=== PATIENT | female | born 1955 | race Caucasian/White ===

== ENCOUNTER 2019-07-23 13:46 | Observation (INO) | payer OTHER, SELFPAY ==
[2019-07-23 13:47] VITALS: BP 136/83; PULSE 66; RESP 12; TEMP 36.6; O2SAT 99; BMI 27.1
--- NOTE | 2019-07-23 15:48 | ED.DCSUM_ITS ---
History of Present Illness Informant: Patient, Significant Other Onset: Today Context: Sudden Onset Timing: Continuous, Waxes and wanes Quality: Pain Location: Right upper quadrant and epigastrium Current Severity: Mild Maximum Severity: Severe Worsened by: After eating lunch Relieved by: Nothing Associated Symptoms: Nausea Narrative: Medication who presents with acute onset of right upper quadrant epigastric pain without radiation that was associate with nausea that occurred 15 minutes after having fish and vegetables. She states she had no butter on her vegetables. She does have history of intolerance to greasy and fried foods. She is never had an ultrasound of her gallbladder or right upper quadrant. She is unaware of any family history cholelithiasis. There is no history of renal or ureteral calculi. She denies history of esophagitis, hiatal hernia, reflux or peptic ulcer disease. She denies black or maroon-colored stool. No cardiac or respiratory symptoms. Prior similar symptoms: No Recent Illness/Hospitalization: No <Hernandez,Mike - Last Filed: 07/23/19 17:10> <Lopez Nieves - Last Filed: 07/23/19 23:22> Chief Complaint: Abd Pain - Past Medical History (1) No significant past medical history Status: Acute <Hernandez,Mike - Last Filed: 07/23/19 17:10> Past Medical History Past Medical History: None Surgical History: no surgical history Lives: Spouse/ Significant Other Smoking Status: Never smoker Alcohol: None Drugs: None <Hernandez,Mike - Last Filed: 07/23/19 17:10> <Lopez Nieves - Last Filed: 07/23/19 23:22> - Allergies and Home Meds Allergies/Adverse Reactions: Allergies No Known Allergies Allergy (Verified 07/23/19 13:46) Primary Care Physician: Aba Crowder DO [Primary Care Provider] - Review of Systems General: Denies: Chills, Fever, Sweats Eyes: Denies: Visual changes - bilaterally, Diplopia ENT: Denies: Rhinorrhea, Sore throat Cardiovascular: Denies: Chest pain, Palpitations, Heart racing Respiratory: Denies: Dyspnea, Cough, Dyspnea on exertion, Orthopnea, Paroxysmal nocturnal dyspnea Gastrointestinal: Reports: Abdominal pain, Nausea. Denies: Vomiting, Diarrhea, Constipation, Melena, Hematochezia, -, - Genitourinary: Denies: Dysuria, Hematuria, Frequency Musculoskeletal: Denies: Myalgias, Arthralgias, Neck pain, Back pain, Swelling, Extremity Pain Skin: Denies: Rash, Wounds Neurological: Denies: Headache, Weakness, Numbness Hematologic: Denies: Easy bruising, Easy bleeding Allergy: Denies: Uticaria, Swelling of the mouth <Hernandez,Mike - Last Filed: 07/23/19 17:10> Physical Exam Vital Signs/Narrative: Vital Signs Temp Pulse Resp BP Pulse Ox 07/23/19 13:47 97.9 F 66 12 136/83 H 99 Inital Vital Signs reviewed: Yes General: Well nourished, Well developed, No Acute Distress Head: Normocephalic, Atraumatic Eyes: Perrl, EOMI. Negative for: Pale conjunctiva, Scleral icterus ENT: Moist mucous membranes, No rhinorrhea Neck: Supple, Nontender, No lymphadenopathy, No JVD Cardiovascular: Regular rate, Regular rhythm, No murmurs, Normal S1, Normal S2 Respiratory: No distress, CTA bilaterally, Chest nontender Abdomen: Soft, Nondistended, No masses, - - Stephen the right upper quadrant and epigastrium. She has an equivocal Silvestre sign.. Negative for: Nontender, Normal bowel sounds, Tender, Guarding, Ventral hernia, Inguinal hernia, Umbilical hernia Rectal: Deferred Back: Nontender, Normal Inspection Extremities: Nontender, No edema Skin: Normal color, No rash Neurological: Alert, Oriented x3, Cranial nerves II-XII grossly intact, Normal Strength, Normal Sensation Psychological: Normal affect, Normal Mood <Hernandez,Mike - Last Filed: 07/23/19 17:10> Vital Signs/Narrative: Vital Signs Pulse Resp BP Pulse Ox 07/23/19 22:17 61 13 138/74 H 97 07/23/19 20:20 66 12 98 <Lopez Nieves - Last Filed: 07/23/19 23:22> Diagnostic/Tx/Re-eval Laboratory Results 07/23/19 07/23/19 16:15 16:15 WBC 8.6 RBC 3.99 L Hgb 13.4 Hct 39.6 MCV 99.2 H MCH 33.6 H MCHC 33.8 RDW Std Deviation 43.9 RDW Coeff of Holly 12.1 Plt Count 166 MPV 11.4 Immature Gran % (Auto) 0.300 Neut % (Auto) 77.3 H Lymph % (Auto) 15.3 L [place] % (Auto) 6.3 Eos % (Auto) 0.7 Baso % (Auto) 0.1 Absolute Neuts (auto) 6.7 Absolute Lymphs (auto) 1.32 Nucleated RBC % 0 Sodium 140 Potassium 4.1 Chloride 105 Carbon Dioxide 32.0 Anion Gap 3 L BUN 17 Creatinine 0.72 Estim Creat Clear Calc 62.43 Est GFR (MDRD) Af Amer 105 Est GFR (MDRD) Non-Af 87 BUN/Creatinine Ratio 23.7 H Glucose 93 Calcium 9.0 Total Bilirubin 0.30 AST 82 H ALT 67 H Alkaline Phosphatase 64 Total Protein 7.4 Albumin 3.6 Globulin 3.8 Albumin/Globulin Ratio 0.9 Lipase 2497 H Blood work is remarkable for a lipase of 2497. With history of intolerance to greasy fried foods this occurred after having fish and vegetables need to evaluate for cholelithiasis. Patient was told to optimize the results of the ultrasound she should wait 8:00. She preferred not to be admitted. She would prefer to know with the ultrasound results reveal and make a decision based on the ultrasound results. Case will be turned over to Dr. Kwadwo Nieves. - Medical Decision Making Prior history of intolerance to greasy and fried foods and pain in the right upper quadrant with equivocal Silvestre sign will evaluate for biliary disease. Since patient ate 2 hours prior to arrival will not be able to obtain an ultrasound until 8 PM. Patient declined pain medicine. Differential diagnosis would include right lower lobe pneumonia, biliary colic, cholelithiasis, cholecystitis. Doubt obstructing ureteral stone since patient reports improvement and there is pain in the right upper quadrant not the flank and she has no urinary symptoms. <Hernandez,Mike - Last Filed: 07/23/19 17:10> Clinical Impression(s) from Imaging Studies Gallbladder Ultrasound 07/23/19 20:00 IMPRESSION: Multiple gallstones. Gallbladder wall thickening. No biliary dilatation. Electronically Signed: Lopez Chapa MD at 22:04 EST , Service support , - Medical Decision Making I evaluated patient after her ultrasound results came back. She is doing well. I examined her. She has significant right upper quadrant tenderness, she had a positive clinical and positive sonographic Silvestre's. She does not have any radiographic evidence of choledocholithiasis, but with her lipase over 2000, she either has a stone or could have had one that passed since her common bile duct is not dilated on the ultrasound. She does not have cholestasis. She is clinically and hemodynamically stable. I advised admission and the patient is amenable to that after discussing with me and her family. Discussed with surgery Dr. Alvarez who agrees with admission and per her request, Zosyn ordered. <Lopez Nieves - Last Filed: 07/23/19 23:22> ED Disposition <Hernandez,Mike - Last Filed: 07/23/19 17:10> <Lopez Nivees - Last Filed: 07/23/19 23:22> - Plan for ED Patient: Disposition: Acute Care Hospital [facility] Diagnosis: Acute calculous cholecystitis Referrals: Aba Crowder DO [Primary Care Provider] -
[2019-07-23 16:18] VITALS: BP 135/69; PULSE 70; RESP 16; O2SAT 98
[2019-07-23 16:29] LABS: Absolute Lymphocyte Count 1.32 X10^3/uL (0.83-4.51); Absolute Neutrophil Count 6.7 X10^3/uL (2.0-7.7); Basophil# 0.01 X10^3/uL; Basophil% 0.1 % (0-1); Eosinophil# 0.06 X10^3/uL; Eosinophils% 0.7 % (0-5); Hematocrit 39.6 % (37-47); Hemoglobin 13.4 g/dL (12.0-15.0); Lymphocyte # 1.32 X10^3/ul (4.0); Lymphocyte % 15.3 % (19-41); Mean Corp Hgb Conc 33.8 g/dL (32-36); Mean Corpuscular Hgb 33.6 pg (27.0-32.0); Mean Corpuscular Volume 99.2 fL (81-99); Mean Platelet Vol. 11.4 fl (6.2-12.0); Monocyte# 0.54 X10^3/uL; Monocyte% 6.3 % (0-10); NRBC Flagged by Analyzer 0 % (0-5); Neutrophil # 6.67 X10^3/uL (2.7-7.7); Neutrophil % 77.3 % (47-70); Platelet Count 166 K/mm3 (150-450); RBC Distribution Width CV 12.1 % (11.6-14.6); RBC Distribution Width SD 43.9 fl (35.1-43.9); Red Blood Count 3.99 M/mm3 (4.2-5.4); White Blood Count 8.6 K/mm3 (4.4-11.0)
[2019-07-23 16:49] LABS: ALB/GLOB Ratio 0.9 RATIO (0.9-2.4); AST(SGOT) 82 U/L (15-37); Alanine Aminotransfer ALT/SGPT 67 U/L (13-56); Albumin, Serum 3.6 g/dL (3.2-5.0); Alkaline Phosphatase 64 U/L (45-117); Anion Gap 3 (5-15); BUN 17 mg/dL (7-18); BUN/Creat Ratio 23.7 RATIO (10-20); Chloride 105 mmol/L (98-107); Creatinine, Serum 0.72 mg/dL (0.55-1.02); EST Glomerular Filtration Rate 87 mL/min (>60); Est Glom Filt Rate - Afr Amer 105 mL/min (>60); Estimated Creatinine Clearance 62.43 ml/min; Globulin 3.8 g/dL (2.2-4.2); Glucose 93 mg/dL (74-106); Lipase 2497 U/L (73-393); Potassium 4.1 mmol/L (3.5-5.1); Protein, Total 7.4 g/dL (6.4-8.2); Sodium Level 140 mmol/L (136-145)
[2019-07-23 18:12] VITALS: BP 144/73; PULSE 67; RESP 18; O2SAT 97
--- NOTE | 2019-07-23 20:00 | US_ITS ---
STUDY: ABDOMINAL ULTRASOUND - RIGHT UPPER QUADRANT REASON FOR VISIT: Female, 64 years old RUQ PAIN TODAY DIARRHEA, TECHNIQUE: Ultrasound evaluation of the right upper quadrant was performed with real-time and static dowell-scale imaging. TECHNICAL QUALITY: Adequate. COMPARISON: None. FINDINGS: Liver: The liver measures 16.3 cm. There is normal echogenicity of the liver. The bile ducts are within normal limits. There is hepatic color flow. The direction of portal flow is hepatopetal. There is no demonstrated mass lesion. Gallbladder: Normal distended gallbladder. The gallbladder wall measures 3 mm. There is a positive sonographic Silvestre''s sign. There is no pericholecystic fluid. There are multiple echogenic structures within the gallbladder, consistent with multiple gallstones. Common Bile Duct (C.B.D.): The common bile duct measures 3 mm. Pancreas: Normal size of the head, body and tail of the pancreas. There is normal echogenicity of the pancreas. There is no demonstrated pancreatic mass or cyst. Right Kidney: Normal size of the right kidney. The right kidney measures 12.1 cm. Normal renal cortex. The right cortex measures 1.0 cm. There is no demonstrated renal mass or cyst. There is an extra-renal pelvis of the right kidney. There is no distention of the renal calyces. US/Gallbladder IMPRESSION: Multiple gallstones. Gallbladder wall thickening. No biliary dilatation. Electronically Signed: Lopez Chapa MD at 22:04 EST , Service support ,
[2019-07-23 20:20] VITALS: PULSE 66; RESP 12; O2SAT 98
[2019-07-23 22:17] VITALS: BP 138/74; PULSE 61; RESP 13; O2SAT 97
--- NOTE | 2019-07-23 23:26 | EKG12_ITS ---
Test Reason : PRE OP Blood Pressure : / mmHG Vent. Rate : 059 BPM Atrial Rate : 059 BPM P-R Int : 162 ms QRS Dur : 096 ms QT Int : 426 ms P-R-T Axes : 051 047 046 degrees QTc Int : 421 ms Sinus bradycardia Otherwise normal ECG When compared with ECG of 07-SEP-1998 19:45, Vent. rate has decreased BY 29 BPM Confirmed by TALI GLOVER, NATALIA ([id number]), business editor DENISE RODRIGUEZ ([id number]) on 07/27/2019 2:56:35 PM Referred By: Confirmed By:DAMON CESAR MD
[2019-07-23 23:46] VITALS: BP 141/80
[2019-07-24] VITALS (11 sets, daily range): BP systolic 116–156; BP diastolic 68–85; PULSE 45–73; RESP 16–18; TEMP 36.3–37.2; O2SAT 94–100; BMI 25.8
[2019-07-24] MEDS: 0.9% Normal Saline 1,000 ML 120 ML IV ×3 (00:41→17:51)
[2019-07-24 06:10] LABS: Absolute Lymphocyte Count 1.45 X10^3/uL (0.83-4.51); Absolute Neutrophil Count 1.7 X10^3/uL (2.0-7.7); Basophil# 0.01 X10^3/uL; Basophil% 0.3 % (0-1); Eosinophil# 0.08 X10^3/uL; Eosinophils% 2.3 % (0-5); Hematocrit 36.7 % (37-47); Hemoglobin 12.3 g/dL (12.0-15.0); Lymphocyte # 1.45 X10^3/ul (4.0); Lymphocyte % 41.2 % (19-41); Mean Corp Hgb Conc 33.5 g/dL (32-36); Mean Corpuscular Hgb 32.9 pg (27.0-32.0); Mean Corpuscular Volume 98.1 fL (81-99); Mean Platelet Vol. 11.3 fl (6.2-12.0); Monocyte# 0.29 X10^3/uL; Monocyte% 8.2 % (0-10); NRBC Flagged by Analyzer 0 % (0-5); Neutrophil # 1.69 X10^3/uL (2.7-7.7); Platelet Count 151 K/mm3 (150-450); RBC Distribution Width CV 12.3 % (11.6-14.6); RBC Distribution Width SD 44.1 fl (35.1-43.9); Red Blood Count 3.74 M/mm3 (4.2-5.4); White Blood Count 3.5 K/mm3 (4.4-11.0)
[2019-07-24 06:34] LABS: AST(SGOT) 31 U/L (15-37); Alanine Aminotransfer ALT/SGPT 46 U/L (13-56); Albumin, Serum 2.9 g/dL (3.2-5.0); Alkaline Phosphatase 49 U/L (45-117); Anion Gap 4 (5-15); BUN 12 mg/dL (7-18); BUN/Creat Ratio 19.1 RATIO (10-20); Bilirubin, Direct 0.21 mg/dL (0.00-0.30); Calcium,Total 8.2 mg/dL (8.5-10.1); Chloride 111 mmol/L (98-107); Creatinine, Serum 0.63 mg/dL (0.55-1.02); EST Glomerular Filtration Rate 101 mL/min (>60); Est Glom Filt Rate - Afr Amer 123 mL/min (>60); Estimated Creatinine Clearance 71.35 ml/min; Globulin 3.3 g/dL (2.2-4.2); Glucose 89 mg/dL (74-106); Lipase 129 U/L (73-393); Potassium 3.8 mmol/L (3.5-5.1); Protein, Total 6.2 g/dL (6.4-8.2); Sodium Level 143 mmol/L (136-145)
--- NOTE | 2019-07-24 07:03 | RAD_ITS ---
STUDY: INTRAOPERATIVE CHOLANGIOGRAM. REASON FOR EXAM: Female, 64 years old. LAP TRINA -- ACUTE CHOLECYSTITIS, PANCREATITIS FLUOROSCOPY TIME (if supplied): ( 37 seconds ) minutes/seconds. 2 single loops were acquired. TECHNIQUE: An intraoperative Cholangiogram was performed by the surgeon. Imaging was submitted. COMPARISON: None. FINDINGS: The common bile duct is not dilated. No intraluminal filling defect is seen. There is free flow of contrast into the duodenum. RAD/Cholangiogram/ O R,Initial IMPRESSION: Unremarkable intraoperative cholangiogram. Electronically Signed: Dawit Silveira, at 14:19 EST , Service support ,
--- NOTE | 2019-07-24 07:41 | PCM.HP.STD ---
History of Present Illness Date of Admission: 07/24/19 The patient is a 64 year old F presented to the ER yesterday due to right upper quadrant abdominal pain starting about noonish. Patient denies having previous abdominal pain like this in the past. She has noticed that she will get diarrhea after eating certain foods. Patient did also have nausea with this. Patient is work-up months and ultrasound showed multiple gallstones, gallbladder wall of 2.9 mm, normal common bile duct, slightly elevated AST and ALT and a normal white blood cell count with slight left shift. Patient did receive Zosyn 3.375 g IV x1 in the ER. Patient denies any abdominal surgery except for a tubal. Past Medical History Allergies No Known Allergies Allergy (Verified 07/23/19 13:46) Home Medications: Ambulatory Orders Medication Instructions Recorded Cholecalciferol (Vitamin D3) 25 mcg PO DAILY 07/24/19 [Vitamin D3] [place]-3 Fatty Acids/Fish Oil 1 ea PO DAILY 07/24/19 [[place] 3 Fish Oil Softgel] Vitamin B Complex [B Complex] 1 ea PO DAILY 07/24/19 Surgical History: - - Tubal Psychiatric History: No pertinent psych hx INTERNSHIP COORDINATOR History: No pertinent INTERNSHIP COORDINATOR history Lives: Spouse/ Significant Other Smoking Status: Never smoker Alcohol: None Drugs: None - *Family History Maternal History Items: No pertinent history Review of Systems Constitutional: Reports: Anorexia Eyes: Denies: Blurred vision HEENT: Denies: Difficulty Swallowing Cardiovascular: Denies: Chest Pain Respiratory: Denies: Shortness of Breath Gastrointestinal: Reports: Abdominal Pain, Nausea VTE Information - Inpt Only VTE Present on Admission: Yes VTE Mechan Device Prophylaxis: SCD's Patient Problems: Active and Suspected Problems No significant past medical history (Acute) Acute calculous cholecystitis (Acute) - Physical Exam Vitals/I&O's: Vital Signs Temp Pulse Resp BP Pulse Ox 98.2 F 62 18 130/73 H 94 07/24/19 06:12 07/24/19 06:12 07/24/19 06:12 07/24/19 06:12 07/24/19 06:12 Oxygen Delivery Method Room Air Weight: 141 lb 1.533 oz Body Mass Index (BMI) 25.8 Intake and Output for Last 24 Hours 07/22/19 07/23/19 07/24/19 23:59 23:59 23:59 Intake Total 160 / 160 Output Total 800 / 800 Balance -640 / -640 General: Alert, Oriented x3, Cooperative, No apparent distress HEENT: Atraumatic Lungs: Normal air movement Cardiovascular: Regular rate Abdomen: Soft, Non-Distended, Tender - Right upper quadrant and epigastrium and minimal in the rest of the abdomen, no peritoneal signs Extremities: No clubbing, No cyanosis, No edema Neurological: Cranial nerves II-XII grossly intact Psych/Mental Status: Normal Affect Laboratory Results 07/23/19 16:15: WBC 8.6, RBC 3.99 L, Hgb 13.4, Hct 39.6, MCV 99.2 H, MCH 33.6 H, MCHC 33.8, RDW Std Deviation 43.9, RDW Coeff of Holly 12.1, Plt Count 166, MPV 11.4, Immature Gran % (Auto) 0.300, Neut % (Auto) 77.3 H, Lymph % (Auto) 15.3 L, [place] % (Auto) 6.3, Eos % (Auto) 0.7, Baso % (Auto) 0.1, Absolute Neuts (auto) 6.7, Absolute Lymphs (auto) 1.32, Nucleated RBC % 0 07/23/19 16:15: Sodium 140, Potassium 4.1, Chloride 105, Carbon Dioxide 32.0, Anion Gap 3 L, BUN 17, Creatinine 0.72, Estim Creat Clear Calc 62.43, Est GFR (MDRD) Af Amer 105, Est GFR (MDRD) Non-Af 87, BUN/Creatinine Ratio 23.7 H, Glucose 93, Calcium 9.0, Total Bilirubin 0.30, AST 82 H, ALT 67 H, Alkaline Phosphatase 64, Total Protein 7.4, Albumin 3.6, Globulin 3.8, Albumin/Globulin Ratio 0.9, Lipase 2497 H 07/24/19 05:28: WBC 3.5 L, RBC 3.74 L, Hgb 12.3, Hct 36.7 L, MCV 98.1, MCH 32.9 H, MCHC 33.5, RDW Std Deviation 44.1 H, RDW Coeff of Holly 12.3, Plt Count 151, MPV 11.3, Immature Gran % (Auto) 0.000, Neut % (Auto) 48.0, Lymph % (Auto) 41.2 H, [place] % (Auto) 8.2, Eos % (Auto) 2.3, Baso % (Auto) 0.3, Absolute Neuts (auto) 1.7 L, Absolute Lymphs (auto) 1.45, Nucleated RBC % 0 07/24/19 05:28: Sodium 143, Potassium 3.8, Chloride 111 H, Carbon Dioxide 28.0, Anion Gap 4 L, BUN 12, Creatinine 0.63, Estim Creat Clear Calc 71.35, Est GFR (MDRD) Af Amer 123, Est GFR (MDRD) Non-Af 101, BUN/Creatinine Ratio 19.1, Glucose 89, Calcium 8.2 L, Total Bilirubin 0.70, Direct Bilirubin 0.21, AST 31, ALT 46, Alkaline Phosphatase 49, Total Protein 6.2 L, Albumin 2.9 L, Globulin 3.3, Lipase 129 Current Medications Hydromorphone HCl (Dilaudid Inj) 0.25 - 0.5 mg IV Q2H PRN PRN PRN Reason: Pain Score 1-10/10 Sodium Chloride () 1,000 mls @ 120 mls/hr IV .[id number] [facility] Last Admin: 07/24/19 00:41 Dose: 120 mls/hr Documented by: Piperacillin Sod/Tazobactam (Sod 3.375 gm/ Sodium Chloride) 50 mls @ 12.5 mls/hr IV Q8 [facility] Last Admin: 07/24/19 06:03 Dose: 12.5 mls/hr Documented by: Pantoprazole Sodium 40 mg/ (Sodium Chloride) 110 mls @ 330 mls/hr IV Q24 [facility] Last Infusion: 07/24/19 02:00 Dose: Infused Documented by: Sodium Chloride () 250 mls @ 15 mls/hr IV .[id number] PRN PRN Reason: Saline Flush Sodium Chloride () 250 mls @ 15 mls/hr IV .[id number] PRN PRN Reason: Additional IVPB Infusion Ondansetron HCl (Zofran) 4 mg IV Q8H PRN PRN PRN Reason: NAUSEA Sodium Chloride () 10 - 40 ml IV UD PRN PRN Reason: SALINE FLUSH Assessment/Plan All Active Problems No significant past medical history (Acute) Acute calculous cholecystitis (Acute) 64-year-old female with acute calculus cholecystitis 1. Reviewed the anatomy with the patient and discussed the procedure: laparoscopic cholecystectomy with possible cholangiograms, possible open. Review risks including but not limited to bleeding, infection, hernia, bile leak, retained gallstones requiring another procedure ERCP- Endoscopic Retrograde Cholangiopancreatography, injury to another organ (bile ducts, common bile duct, small bowel, etc.) may require transfer to tertiary care facility and conversion to an open procedure. All questions were answered. Patient and her daughter had no further questions this time. Plan for OR about 1230 today Belen Alvarez M.D. Pager: [phone] [facility] [address] [place] [address], [address] [place] [address] Office: [phone]
--- NOTE | 2019-07-24 11:07 | PCA ---
pt off floor
[2019-07-24] MEDS: Lactated Ringers 1,000 ML 100 ML IV (12:16)
--- NOTE | 2019-07-24 12:55 | GALL_PTH ---
PATIENT: CHARY SARMIENTO LOC: MS3 U#:[id number] AGE/SX: 64/F ROOM: MS314 RE07/23/[address]: Dr. Belen Alvarez MD : 1955 BED: 1 DIS: 07/25/2019 SPEC #: [id number] RECD: 07/24/19 16:00 STATUS: WAN LUCA #: [id number] BAMBI: 07/24/19 12:[address]: Belen Alvarez DEPT: SURGICAL PATHOLOGY RECD BY: Linda Noel ENTERED: 07/25/19 11:44 SP TYPE: REJI MARTINEZ DR: Dr. Aba Crowder DO Tissues: Gallbladder, NOS Procedures: Surgery Specimen Level IV HEADER OPERATION: Laparoscopic cholecystectomy with IOC PRE-OP DIAGNOSIS: Acute calculous cholecystitis TISSUE SUBMITTED: Gallbladder MICROSCOPIC DIAGNOSIS Gallbladder, cholecystectomy: Chronic cholecystitis and cholelithiasis. Focal dysplastic changes. A pericystic lymph node with reactive changes. SJ:pravin 07/27/19 COMMENT Case has been reviewed in consultation with Dr. Almonte who concurs with the above diagnosis. IDC:AM MICROSCOPIC DESCRIPTION Slides are reviewed. GROSS DESCRIPTION Received is one container labeled with the patient's name and designated gallbladder. The specimen consists of a gallbladder measuring 10 x 4 x 4 cm. The external surface is smooth and glistening. Focally, it is granular, hemorrhagic and contains cautery artifact. The lumen of the gallbladder contains greenish mucoid bile and multiple calculi and fragments of calculi that are yellow and multifaceted ranging in size from <0.1 to 1.5 cm in greatest dimension. The mucosa is bile-stained and without any mass lesions. The gallbladder wall averages 0.2 cm in thickness and is free of mass lesions. Sandblaster Supervisor sections of the gallbladder and the cystic duct at margin of resection are submitted in one cassette. / AM:pravin 07/25/19 More sections are submitted in cassettes 2-4. / SJ:pravin 07/26/19 TC:5 CPT: 42319
--- NOTE | 2019-07-24 13:23 | PCA ---
pt off floor
[2019-07-24] MEDS: Bupivacaine Mpf 0.5% 30 ML VIAL (14:08)
--- NOTE | 2019-07-24 14:09 | PCM.OPRPT ---
Report of Operation Date of Procedure: 07/24/19 Pre-Operative Diagnosis: Acute cholecystitis, gallstone pancreatitis Post-Operative Diagnosis: Same Surgery/Procedure Performed:: Laparoscopic cholecystectomy with cholangiograms manager risk management: Marcio Wilson Type of Anesthesia:: General/Supplemental Anesthesiologist: Vazquez Felton Special Medications: Patient is on Zosyn 3.375 g IV on the floor for acute cholecystitis Specimen's removed: Gallbladder Estimated Blood Loss (mL): 10 cc Fluids Replaced: 1000 cc Description of Procedure: Indications this is a 64 year-old female who developed abdominal pain/nausea and on workup was found to have cholelithiasis, acute cholecystitis, gallstone pancreatitis, with a normal common bile duct. Laparoscopic cholecystectomy was elected. Description procedure: The patient was placed on operating table in supine position. General Anesthesia was induced. A timeout was completed verifying correct patient, procedure, site, position and special equipment prior to beginning procedure. The abdomen was prepped and draped in usual sterile fashion. An incision was made in the natural skin line below the umbilicus. The fascia was elevated and incised. The peritoneum was elevated and incised. Entry into the peritoneum was confirmed visually and no bowel was noted in the vicinity of the incision. Mckeon trocar was placed. The abdomen was insufflated with carbon dioxide to a pressure of 12-15 mmHg. Patient tolerated insufflation well. The laparoscope was then inserted and abdomen inspected. No injuries from initial trocar placement were noted. Additional trochars were then inserted in the following locations 5 mm trocar in the epigastrium and 2 more 5 mm trochars along the right costal margin. The abdomen was inspected no abnormalities were found. The table is placed in reverse Trendelenburg position with the right side up. The adhesions between the gallbladder and omentum were lysed sharply. The dome of the gallbladder was grasped with atraumatic grasper passed through the lateral port and retracted over the dome of the liver. Infundibulum was then grasped with atraumatic grasper through the midclavicular port and retracted to the right lower quadrant. This maneuver exposed Calot's triangle. The peritoneum overlying the gallbladder infundibulum was then incised and cystic duct and artery identified and circumferentially dissected. Bailey catheter was used for cholangiograms. The cholangiogram showed good filling of the common bile duct into the duodenum with no filling defects, good filling of the right and left bile ducts as well. The cystic duct and artery were then doubly clipped and divided close to the gallbladder. The gallbladder then dissected from its peritoneal attachments by electrocautery. Hemostasis was checked and the gallbladder and contained stones were removed using the endoscopic retrieval bag through the umbilical port. The gallbladder is passed off table as specimen. The gallbladder fossa was copiously irrigated with saline and hemostasis obtained. There is no evidence of bleeding from the gallbladder fossa or cystic artery leakage of bile from the cystic duct stump. Secondary trochars removed under direct vision. No bleeding was noted the trocar sites. The laparoscope was withdrawn and umbilical trocar removed. The abdomen was allowed to collapse. The fascia of the 12 mm trocar was closed with a [id number] 0 Vicryl suture. The skin was closed with sutures of 4-0 Monocryl and Steri-Strips. The orogastric tube was removed and the patient was extubated. The patient tolerated procedure well and was taken to the postanesthesia care unit in stable condition. - Complications none
[2019-07-24] MEDS: Acetaminophen 325 MG Tablet 650 MG PO (17:50)
[2019-07-25] MEDS: Acetaminophen 325 MG Tablet 650 MG PO ×2 (01:42→08:39)
[2019-07-25] MEDS: 0.9% Normal Saline 1,000 ML 120 ML IV (01:43)
[2019-07-25 01:45] VITALS: BP 123/70; PULSE 60; RESP 18; TEMP 37.2; O2SAT 95
[2019-07-25 08:00] VITALS: BP 124/57; PULSE 65; RESP 18; TEMP 36.7; O2SAT 95
--- NOTE | 2019-07-25 08:49 | PN.SURG_ITS ---
Patient Problems: Active and Suspected Problems No significant past medical history (Acute) Acute calculous cholecystitis (Acute) Subjective: Patient is tolerating clears, having some flatus pain control Tylenol - Physical Exam Vitals/I&O's: Vital Signs Temp Pulse Resp BP Pulse Ox 98.1 F 65 18 124/57 H 95 07/25/19 08:00 07/25/19 08:00 07/25/19 08:00 07/25/19 08:00 07/25/19 08:00 Oxygen Delivery Method Room Air Weight: 141 lb 1.533 oz Body Mass Index (BMI) 25.8 Intake and Output for Last 24 Hours 07/23/19 07/24/19 07/25/19 23:59 23:59 23:59 Intake Total 2808 / 2808 944 / 944 Output Total 1700 / 2700 2200 / 2200 Balance 1108 / 108 -1256 / -1256 General: Alert, Oriented x3, Cooperative, No apparent distress HEENT: Atraumatic Lungs: Normal air movement Cardiovascular: Regular rate Abdomen: Soft, Non-Distended, Tender - Near incisions, incisions dressed clean dry and intact, no peritoneal signs Extremities: No clubbing, No cyanosis, No edema Neurological: Cranial nerves II-XII grossly intact Current Medications Acetaminophen (Tylenol) 650 mg PO Q6H PRN PRN PRN Reason: Pain Score 1-10/10 Last Admin: 07/25/19 08:39 Dose: 650 mg Documented by: Hydromorphone HCl (Dilaudid Inj) 0.25 - 0.5 mg IV Q2H PRN PRN PRN Reason: Pain Score 1-10/10 Sodium Chloride () 1,000 mls @ 120 mls/hr IV .Q8H20M [facility] Last Admin: 07/25/19 01:43 Dose: 120 mls/hr Documented by: Pantoprazole Sodium 40 mg/ (Sodium Chloride) 110 mls @ 330 mls/hr IV Q24 [facility] Last Infusion: 07/24/19 02:00 Dose: Infused Documented by: Sodium Chloride () 250 mls @ 15 mls/hr IV .[id number] PRN PRN Reason: Saline Flush Sodium Chloride () 250 mls @ 15 mls/hr IV .[id number] PRN PRN Reason: Additional IVPB Infusion Ondansetron HCl (Zofran) 4 mg IV Q8H PRN PRN PRN Reason: NAUSEA Oxycodone HCl (Oxyir) 5 mg PO Q4H PRN PRN PRN Reason: Pain Score 6-10/10 Sodium Chloride () 10 - 40 ml IV UD PRN PRN Reason: SALINE FLUSH Medical Necessity - Tobacco Use Smoking Status: Never smoker Assessment/Plan All Active Problems No significant past medical history (Acute) Acute calculous cholecystitis (Acute) 64-year-old female with acute calculus cholecystitis postop day 1 status post laparoscopic cholecystectomy 1. Patient tolerating clears well prior more solid diet today, patient is able to tolerate p.o., ambulate and vital signs remained stable pain control patient to be DC'd today. Belen Alvarez M.D. Pager: [phone] [facility] [address] [place] [address], [address] [place] [address] Office: [phone]
--- NOTE | 2019-07-25 08:51 | DCINST_ITS ---
Discharge Diet: Light diet - advance as tolerated Discharge Activity: May not drive while taking narcotic pain medications. May shower in (days): 1 - Keep the outer bandage on while showering the first time then okay to remove Lifting Restrictions: No lifting > 20 pounds x 2 - 3 wks, no strenuous exercise for 4-5 wks Call your doctor if your incision/area has: Continuous Slow Oozing, Sudden Increased Bleeding, Increased Pain/ Swelling, Increased Redness, Foul Smelling Discharge, Swelling at the incision site Call your doctor if you observe: Fever of 101 or Higher Remove Dressing in (days):: 1 - Okay to shower and remove outer dressings in 24 hours from surgery. Steri-Strips will stay on for 7 to 10 days with an follow- up in 10 days okay to remove okay to get Steri-Strips wet after the first 24 hours Additional Instructions: Okay to take ibuprofen 400-600 mg PO q6hr PRN along with the Percocet. Avoid Tylenol since there is already Tylenol in the Percocet. Take all pain meds with food. Percocet can cause constipation recommend taking daily stool softener (i.e. Colace/docusate) while taking the pain meds. Recommend starting some MiraLAX 1 to 2 days if no bowel movement. If still no bowel movement following day recommend taking magnesium citrate half the bottle and waiting 4-6 hours if still no results take the other half the bottle. Allergies/Adverse Reactions: Allergies No Known Allergies Allergy (Verified 07/23/19 13:46) Medications to take at Discharge Cholecalciferol (Vitamin D3) [Vitamin D3] 25 mcg PO DAILY 07/24/19 [place]-3 Fatty Acids/Fish Oil [[place] 3 Fish Oil Softgel] 1 ea PO DAILY 07/24/19 Vitamin B Complex [B Complex] 1 ea PO DAILY 07/24/19 Oxycodone HCl/Acetaminophen [Percocet 5/325] 1 tablet PO Q6H PRN PRN 3 Days #5 tablet 07/25/19 The following prescriptions were given: Oxycodone HCl/Acetaminophen [Percocet 5/325] 1 tablet PO Q6H PRN PRN 3 Days #5 tablet PRN Reason: Pain Transmission Status: Sent to [facility] Primary Care Physician: Lakesha,Aba, DO [Primary Care Provider] - Test Results: Test results from this visit will be discussed in further detail at your follow- up appointment, if applicable. Please Follow Up With: Belen Alvarez MD - After 5 PM and on the weekends call [phone] with any concerns When: Call the office [phone] for a follow-up appointment in 1 to 2 weeks Proposed Discharge Date: 07/25/19
[2019-07-25 11:10] VITALS: BP 144/70; PULSE 64; RESP 14; TEMP 36.6; O2SAT 98
[2019-07-25 12:00] VITALS: BP 123/74; PULSE 56; RESP 16; TEMP 36.9; O2SAT 95
== END 2019-07-25 12:50 | disposition home or self-care (01) ==
LOC: ED 23:22 → MS3 23:50
PROVIDERS: Admitting Provider Surgery; Emergency Provider Emergency Medicine; PCP Family Medicine; Visit Provider Surgery
PROC: (CPT 47610; principal; 2019-07-24 12:35)
DX: K80.12 Calculus of gallbladder with acute and chronic cholecystitis without obstruction (principal); K85.10 Biliary acute pancreatitis without necrosis or infection; R00.1 Bradycardia, unspecified
CPT/HCPCS: 00790; 47563; 36415; 74300; 76000; 76705; 80048; 80053; 80076; 83690; 85025; 88304; 88305; 93005; 96361; 96365; 96366; 96367; 99218; 99251; 99285; J7030; J7050; J7120; G0378; G0379; G0463; J1610; J2405

== ENCOUNTER → 2019-08-08 09:48 | Outpatient (CLI) | payer SELFPAY, OTHER ==
[2019-07-24 09:07] VITALS: BMI 25.8
--- NOTE | 2019-08-08 09:49 | MRI_ITS ---
STUDY: MRI ABDOMEN WITH AND WITHOUT CONTRAST REASON FOR EXAM: Female, 64 years old. BILIARY MALIGNANCY -- post olman 2 weeks ago, minimal abd pain TECHNIQUE: Standardized fat and water weighted pulse sequences were obtained in all 3 orthogonal planes post contrast administration. IV dotarem 11ml was administered for the contrast portion of the examination. COMPARISON: Ultrasound 07/23/2019 FINDINGS: The visualized lung bases are unremarkable. The visualized portions of the heart are within normal limits. Normal liver. There are surgical clips in the gallbladder fossa consistent with a prior cholecystectomy. Normal spleen. Normal pancreas. Normal bilateral adrenal glands. Normal right kidney. Normal left kidney. Normal visualized stomach. Normal small intestine. Normal colon. There is non-visualization of the appendix. Normal abdominal aorta. Normal inferior vena cava. Normal retroperitoneum. Normal abdominal wall. Normal osseous structures. MRI/MRI Abd WITH and W/O Contrast IMPRESSION: Normal unenhanced and enhanced MRI of the abdomen after cholecystectomy. No MR evidence of metastatic disease. Electronically Signed: Patric Bennett MD at 11:46 EST Tel , Service support ,
== END ==
PROVIDERS: PCP Family Medicine; Referring Provider Surgery; Visit Provider Surgery
DX: K82.9 Disease of gallbladder, unspecified (principal)
CPT/HCPCS: 74183; A9575; A4216

== ENCOUNTER → 2024-05-30 | Outpatient (CLI) | payer SELFPAY, OTHER | END | disposition home or self-care (01) | LOC: CT 16:41 | PROVIDERS: PCP Family Medicine; Referring Provider Student in an Organized Health Care Education/Training Program; Visit Provider Student in an Organized Health Care Education/Training Program | DX: C20 Malignant neoplasm of rectum (principal) | CPT/HCPCS: 71260; Q9967 ==